=== PATIENT | male | born 1965 | race Caucasian/White ===

== ENCOUNTER → 2018-04-25 17:26 | Outpatient (CLI) | payer BC, SELFPAY ==
[2018-04-25 18:51] LABS: Amphetamine Urine VISTA NEGATIVE (<1000 ng/mL); Barbiturate Urine VISTA NEGATIVE (< 200 ng/mL); Benzodiazepine Urine VISTA NEGATIVE (< 200 ng/mL); Cocaine Urine VISTA NEGATIVE (< 300 ng/mL); Ecstacy Urine VISTA NEGATIVE (< 500 ng/mL); Methadone Urine VISTA NEGATIVE (< 300 ng/mL); PCP Urine VISTA NEGATIVE (< 25 ng/mL); THC Urine VISTA NEGATIVE (< 50 ng/mL); Vista UDS pH Range 6
== END ==
DX: F11.90 Opioid use, unspecified, uncomplicated (principal)
CPT/HCPCS: 80307

== ENCOUNTER 2023-07-11 11:43 | Emergency (ER) | payer OTHER, SELFPAY ==
[2023-07-11] VITALS (16 sets, daily range): BP systolic 88–142; BP diastolic 52–93; PULSE 99–148; RESP 14–43; TEMP 36.4–37.1; O2SAT 69–100; BMI 18.0
--- NOTE | 2023-07-11 11:56 | EKG12_ITS ---
Test Reason : Blood Pressure : / mmHG Vent. Rate : 138 BPM Atrial Rate : 138 BPM P-R Int : 140 ms QRS Dur : 100 ms QT Int : 288 ms P-R-T Axes : 064 051 -16 degrees QTc Int : 436 ms Sinus tachycardia with occasional Premature ventricular complexes Right atrial enlargement Inferior infarct , age undetermined Abnormal ECG Confirmed by ALAN LUNDBERG, THONG ([id number]), society editor EVERARDO ESCAMILLA ([id number]) on 07/13/2023 12:40:26 PM Referred By: KARY Confirmed By:THONG PHILLIPS MD
--- NOTE | 2023-07-11 11:56 | RAD_ITS ---
INDICATION: dyspnea EXAMINATION/TECHNIQUE: X-RAY - XR Chest 1 View COMPARISON: No relevant prior comparison study available FINDINGS: LINES/DEVICES: None. LUNGS: There are hazy and patchy opacities throughout the mid and lower right lung. No pneumothorax. MEDIASTINUM AND CARDIOVASCULAR STRUCTURES: Cardiac silhouette not enlarged. Central airways and mediastinal contour are unremarkable. BONES AND SOFT TISSUES: Unremarkable. RAD/Chest 1 View (Portable) IMPRESSION: Patchy and ill-defined opacities throughout the right lung may be secondary to some combination of atelectasis, pneumonia and/or asymmetric edema, cannot exclude neoplastic process. Electronically Signed: Candida Sinha MD at 13:37 EDT ,
--- NOTE | 2023-07-11 11:59 | ED.VIS.DYS ---
HPI <JORI Garcia - Last Filed: 07/11/23 14:18> History of Present Illness Chief Complaint: Shortness of Breath Narrative Narrative: 57-year-old male with past medical history of hypertension, tobacco use presents with a few days of cough, shortness of breath, and right-sided chest pain. Shortness of breath worsened today prompting his family to bring him in. He does not wear home O2 or use inhalers. Has no known diagnosis of cardiopulmonary disease. He was profoundly hypoxic in triage and placed on nonrebreather. PFSH <JORI Garcia - Last Filed: 07/11/23 14:18> PFSH Allergy/AdvReac Type Severity Reaction Status Date / Time No Known Allergies Allergy Verified 07/11/23 12:15 Social History Smoking Status: Current every day smoker tobacco type: cigarettes ROS <JORI Garcia - Last Filed: 07/11/23 14:18> ROS ED ROS Narrative Constitutional: Negative for fever, chills, malaise. CVS: Positive for chest pain. Negative for syncope. Respiratory: Positive for shortness of breath, cough. GI: Negative for abdominal pain, nausea, vomiting. Neuro: Negative for headache. EXAM <JORI Garcia Last Filed: 07/11/23 14:18> Physical Exam Narrative Exam Narrative: CONST: Patient on nonrebreather with increased work of breathing, awake and alert. EYES: Normal inspection. NECK: Normal inspection. RESP: Tachypneic, diminished with faint wheezing. CVS: Rapid but regular rhythm, no murmur, no gallop. SKIN: Color normal, no rash, warm, dry, intact. EXTREMITIES: Normal appearance, no pedal edema. NEURO: Oriented x4. PSYCH: Normal affect. Const Vital Signs: 07/11/23 11:50 07/11/23 11:47 07/11/23 11:54 Temperature 98.8 F 98.8 F Temperature Source Temporal Temporal Pulse Rate 138 H 148 H 142 H Respiratory Rate 40 H 43 H 43 H Respiratory Effort Respiratory Depth Respiratory Pattern Blood Pressure 118/82 H 118/82 H 118/82 H Blood Pressure Mean 94 94 94 Pulse Ox 69 83 69 Oxygen Delivery Method Nasal Cannula Non-Rebreather @ 15L/min Nasal Cannula Oxygen Flow Rate (L/min) 4 Fraction of Inspired Oxygen (FIO2) 07/11/23 11:59 07/11/23 12:17 07/11/23 12:15 Temperature Temperature Source Pulse Rate 135 H Respiratory Rate 36 H 34 H Respiratory Effort Short of Breath Labored Respiratory Depth Shallow Respiratory Pattern Tachypnea Tachypnea Blood Pressure 91/65 Blood Pressure Mean 73 Pulse Ox 91 Oxygen Delivery Method Nasal Cannula Bi-pap Oxygen Flow Rate (L/min) Fraction of Inspired Oxygen (FIO2) 100 07/11/23 13:54 07/11/23 14:43 Temperature Temperature Source Pulse Rate 113 H 102 H Respiratory Rate 24 H 26 H Respiratory Effort Respiratory Depth Respiratory Pattern Blood Pressure 90/52 L 88/67 L Blood Pressure Mean 64 74 Pulse Ox 97 100 Oxygen Delivery Method Bi-pap Bi-pap Oxygen Flow Rate (L/min) Fraction of Inspired Oxygen (FIO2) <Mesfin Aldana MD - Last Filed: 07/11/23 15:11> Physical Exam Const Vital Signs: 07/11/23 11:50 07/11/23 11:47 07/11/23 11:54 Temperature 98.8 F 98.8 F Temperature Source Temporal Temporal Pulse Rate 138 H 148 H 142 H Respiratory Rate 40 H 43 H 43 H Respiratory Effort Respiratory Depth Respiratory Pattern Blood Pressure 118/82 H 118/82 H 118/82 H Blood Pressure Mean 94 94 94 Pulse Ox 69 83 69 Oxygen Delivery Method Nasal Cannula Non-Rebreather @ 15L/min Nasal Cannula Oxygen Flow Rate (L/min) 4 Fraction of Inspired Oxygen (FIO2) 07/11/23 11:59 07/11/23 12:17 07/11/23 12:15 Temperature Temperature Source Pulse Rate 135 H Respiratory Rate 36 H 34 H Respiratory Effort Short of Breath Labored Respiratory Depth Shallow Respiratory Pattern Tachypnea Tachypnea Blood Pressure 91/65 Blood Pressure Mean 73 Pulse Ox 91 Oxygen Delivery Method Nasal Cannula Bi-pap Oxygen Flow Rate (L/min) Fraction of Inspired Oxygen (FIO2) 100 07/11/23 13:54 07/11/23 14:43 Temperature Temperature Source Pulse Rate 113 H 102 H Respiratory Rate 24 H 26 H Respiratory Effort Respiratory Depth Respiratory Pattern Blood Pressure 90/52 L 88/67 L Blood Pressure Mean 64 74 Pulse Ox 97 100 Oxygen Delivery Method Bi-pap Bi-pap Oxygen Flow Rate (L/min) Fraction of Inspired Oxygen (FIO2) MDM <JORI Garcia - Last Filed: 07/11/23 14:18> MDM MDM Narrative Medical decision making narrative: History gathered from: Patient and family Patient presents with cough and shortness of breath. He is hypoxic and was placed on nonrebreather and is still low 80s. He is awake and alert and able to relay history but appears tired with increased work of breathing. Heart is rapid but regular. Lungs are diminished with faint wheezing. No evidence of fluid overload. Sepsis work-up was initiated and RT is in the room and placed the patient on BiPAP. Labs show white count of 26.4, hyponatremia 125, normal renal function at 24, 1.01. Lactate 7.2. EKG is nonischemic and troponin is 18. My interpretation of 1 view chest x-ray shows complete whiteout of the right lung concerning for pneumonia. Patient was given IV fluids 30 cc/kilogram and Rocephin 2 g and Zithromax 500 mg. He remains hypotensive but MAP is around 80. Lab Data Attestation: I reviewed the patient's lab results. Labs: Laboratory Results - last 24 hr 07/11/23 11:55 WBC 26.4 H RBC 5.36 Hgb 16.5 Hct 47.8 MCV 89.2 MCH 30.8 MCHC 34.5 RDW Std Deviation 46.1 H RDW Coeff of Eysenia 14.2 Plt Count 413 MPV 10.9 Immature Gran % (Auto) 3.000 H Neut % (Auto) 91.5 H Lymph % (Auto) 4.1 L Upton % (Auto) 1.2 Eos % (Auto) 0.0 Baso % (Auto) 0.2 Absolute Neuts (auto) 24.2 H Absolute Lymphs (auto) 1.09 Nucleated RBC % 0 Differential Comment SCANNED Toxic Vacuolation 1+ D-Dimer Quant (PE/DVT) 7.00 H* Sodium 125 L Potassium 3.8 Chloride 86 L Carbon Dioxide 22.0 Anion Gap 17 H BUN 24 H Creatinine 1.01 Estim Creat Clear Calc 68.95 Est GFR (MDRD) Af Amer 97 Est GFR (MDRD) Non-Af 80 BUN/Creatinine Ratio 23.8 H Glucose 131 H Lactic Acid 7.2 H* Calcium 9.9 Troponin I High Sens 18 Procalcitonin 15.07 H Radiography Diagnostic Testing: Clinical Impression(s) from Imaging Studies Chest X-Ray 07/11/23 11:56 IMPRESSION: Patchy and ill-defined opacities throughout the right lung may be secondary to some combination of atelectasis, pneumonia and/or asymmetric edema, cannot exclude neoplastic process. Electronically Signed: Candida Sinha MD at 13:37 EDT , Chest CTA 07/11/23 12:40 IMPRESSION: No demonstrated pulmonary embolism or arterial dissection. Consolidation associated with groundglass opacities throughout the right lung may be secondary to multifocal pneumonia and edema, cannot exclude an underlying neoplastic process, recommend follow-up chest CT in 6-8 weeks. Enlarged mediastinal lymph nodes, may be reactive however cannot exclude a neoplastic process. Emphysema. Small right pleural effusion. Small pericardial effusion. Atherosclerosis. Electronically Signed: Candida Sinha MD at 14:48 EDT , EKG Initial EKG: Attestation: I personally reviewed and interpreted this EKG as follows: Comments: Sinus tachycardia at 130 bpm, occasional PVCs No STEMI criteria <Mesfin Aldana MD - Last Filed: 07/11/23 15:11> [facility] MDM Narrative Medical decision making narrative: History gathered from: Patient and family Patient presents with cough and shortness of breath. He is hypoxic and was placed on nonrebreather and is still low 80s. He is awake and alert and able to relay history but appears tired with increased work of breathing. Heart is rapid but regular. Lungs are diminished with faint wheezing. No evidence of fluid overload. Sepsis work-up was initiated and RT is in the room and placed the patient on BiPAP. Labs show white count of 26.4, hyponatremia 125, normal renal function at 24, 1.01. Lactate 7.2. EKG is nonischemic and troponin is 18. My interpretation of 1 view chest x-ray shows complete whiteout of the right lung concerning for pneumonia. Patient was given IV fluids 30 cc/kilogram and Rocephin 2 g and Zithromax 500 mg. He remains hypotensive but MAP is around 80. Dr. Aldana: I have personally performed a face to face assessment of the patient and have reviewed the YOMI Note. I performed a substantive portion of the visit including all aspects of the following. My allison findings include: History is shortness of breath and cough times days. Patient hypoxic upon EMS arrival. On arrival to ED, 83% on nonrebreather. Attempt made to switch to nasal cannula and he remains hypoxic. No fever or chills. Positive smoker. Exam is afebrile. Vital signs noted. Moderate respiratory distress. Diminished breath sounds right side lung field. Positive tachypnea. Abdomen soft. Medical Decision Making: Check labs. Check chest x-ray. I interpreted his chest x-ray in 1 view which shows multifocal pneumonia on the right but no evidence of pneumothorax. I reviewed the radiology report which confirms my independent interpretation. There is also concern for neoplastic disease. EKG was obtained and interpreted by myself as well which demonstrates sinus tachycardia with occasional PVCs at [address] changes. No STEMI. I reviewed his laboratory work. He has a leukocytosis of 26.4, D-dimer is elevated at 7.0, this may coincide with questionable neoplastic disease of the right lung. CTA was obtained and I reviewed the radiology report which does show multifocal pneumonia on the right side, with still question of neoplastic disease. He has a low sodium of 125 and a chloride low at 86 with elevated anion gap, BUN 24. I discussed the patient with the hospitalist, Dr. Dunn, and given no ICU coverage there is need for transfer. Patient was discussed with ICU attending at [facility], Dr. Peñaloza who requested a bladder scan and an ABG. She would also like discs of the CTA and of the chest x-ray. She also requested that the patient be put on high flow nasal cannula oxygen instead of BiPAP at 14/8 because mucous plugging could be making the patient hypotensive. He was taken off BiPAP, his blood pressure increased to 117 systolic. At this point in time, he is awaiting a bed at [facility]. I will sign out the patient to the oncoming physician, Dr. Odell Solorio to ensure transport to [facility]. Patient is in guarded condition. Other additions or changes: [None] History & Record Review Discussion w/independent historian: Patient and Family Additional record(s) reviewed:: No prior records Lab Data Labs: Laboratory Results - last 24 hr 07/11/23 11:55 WBC 26.4 H RBC 5.36 Hgb 16.5 Hct 47.8 MCV 89.2 MCH 30.8 MCHC 34.5 RDW Std Deviation 46.1 H RDW Coeff of Yesenia 14.2 Plt Count 413 MPV 10.9 Immature Gran % (Auto) 3.000 H Neut % (Auto) 91.5 H Lymph % (Auto) 4.1 L Upton % (Auto) 1.2 Eos % (Auto) 0.0 Baso % (Auto) 0.2 Absolute Neuts (auto) 24.2 H Absolute Lymphs (auto) 1.09 Nucleated RBC % 0 Differential Comment SCANNED Toxic Vacuolation 1+ D-Dimer Quant (PE/DVT) 7.00 H* Sodium 125 L Potassium 3.8 Chloride 86 L Carbon Dioxide 22.0 Anion Gap 17 H BUN 24 H Creatinine 1.01 Estim Creat Clear Calc 68.95 Est GFR (MDRD) Af Amer 97 Est GFR (MDRD) Non-Af 80 BUN/Creatinine Ratio 23.8 H Glucose 131 H Lactic Acid 7.2 H* Calcium 9.9 Troponin I High Sens 18 Procalcitonin 15.07 H Radiography Diagnostic Testing: Clinical Impression(s) from Imaging Studies Chest X-Ray 07/11/23 11:56 IMPRESSION: Patchy and ill-defined opacities throughout the right lung may be secondary to some combination of atelectasis, pneumonia and/or asymmetric edema, cannot exclude neoplastic process. Electronically Signed: Candida Sinha MD at 13:37 EDT , Chest CTA 07/11/23 12:40 IMPRESSION: No demonstrated pulmonary embolism or arterial dissection. Consolidation associated with groundglass opacities throughout the right lung may be secondary to multifocal pneumonia and edema, cannot exclude an underlying neoplastic process, recommend follow-up chest CT in 6-8 weeks. Enlarged mediastinal lymph nodes, may be reactive however cannot exclude a neoplastic process. Emphysema. Small right pleural effusion. Small pericardial effusion. Atherosclerosis. Electronically Signed: Candida Sinha MD at 14:48 EDT , Management Discussion w/another healthcare provider: Hospitalist (Dr. Dunn) and Garden Implement Mechanic ([facility] ICU attending) <Mesfin Aldana MD - Last Filed: 07/11/23 15:11> Critical Care Time Critical Care Time: Yes Critical care time (excluding procedures): 30-74 minutes (33), Including time spent:, Discussing w/Patient &/or Family/Pipe Fitter Supervisor Maintenance, Discussing w/Consultants, Arranging Admission or Transfer and Performing Direct Patient Care at Bedside Discharge Plan Triage Chief Complaint: Shortness of Breath ED Midlevel Provider: Lisa Keita ED Provider: Mesfin Aldana Dx/Rx/DC Orders Clinical Impression: Acute hypoxic respiratory failure, Septic shock, Community acquired pneumonia Primary Care Provider: Care Physician,No Primary Referrals: NOT,DEFINED [Non-Staff] -
[2023-07-11] MEDS: 0.9% Normal Saline (1000mL) 1,000 ML 999 ML IV ×3 (12:05→14:26)
[2023-07-11] MEDS: MethylPREDNISolone 125 MG/2 ML Vial IV (12:06)
[2023-07-11 12:18] LABS: Absolute Lymphocyte Count 1.09 X10^3/uL (0.83-4.51); Absolute Neutrophil Count 24.2 X10^3/uL (2.0-7.7); Basophil# 0.05 X10^3/uL; Basophil% 0.2 % (0-1); Differential Indicated SCAN CRITERIA MET; Hematocrit 47.8 % (40-54); Hemoglobin 16.5 g/dL (13.0-16.5); Lymphocyte # 1.09 X10^3/ul (0.83-4.51); Lymphocyte % 4.1 % (19-41); Mean Corp Hgb Conc 34.5 g/dL (32-36); Mean Corpuscular Hgb 30.8 pg (27.0-32.0); Mean Corpuscular Volume 89.2 fL (80-94); Mean Platelet Vol. 10.9 fl (6.2-12.0); Monocyte# 0.31 X10^3/uL; Monocyte% 1.2 % (0-10); NRBC Flagged by Analyzer 0 % (0-5); Neutrophil # 24.16 X10^3/uL (2.7-7.7); Neutrophil % 91.5 % (47-70); POSITIVE DIFFERENTIAL YES; POSITIVE MORPHOLOGY YES; Platelet Count 413 K/mm3 (150-450); RBC Distribution Width CV 14.2 % (11.6-14.6); RBC Distribution Width SD 46.1 fl (35.1-43.9); Red Blood Count 5.36 M/mm3 (4.6-6.2); White Blood Count 26.4 K/mm3 (4.4-11.0)
--- NOTE | 2023-07-11 12:40 | CT_ITS ---
STUDY: CTA CHEST REASON FOR EXAM: Male, 57 years old. Elevated d dimer RADIATION DOSAGE (If Supplied By Facility): CTDIvol = ( 11.97 ) mGy, DLP = ( 603.02 ) mGycm TECHNIQUE: The examination was performed with the intravenous administration of IV 100mL Isovue-370. Post-processing of the angiographic images was performed, with multiplanar reformation and 3D reconstruction. Individualized dose optimization techniques were used for this CT. COMPARISON: No relevant prior comparison study available FINDINGS: There is consolidation throughout the right lung associated with groundglass opacities. There is a small right pleural effusion. There are bilateral emphysematous changes. Normal enhancement of the main pulmonary artery and right and left pulmonary arteries. Normal enhancement of the bilateral peripheral pulmonary arteries. There is no demonstrated pulmonary embolism. Normal thoracic aorta and visualized great vessels. There is no demonstrated aortic dissection. There are calcifications of the coronary arteries. There is a small pericardial effusion. There are pathologically enlarged mediastinal lymph nodes. Normal visualized trachea and bronchi. Normal chest wall structures. There are degenerative changes of the shoulders. Normal visualized upper abdomen. CT/CTA Chest W/WO Contrast IMPRESSION: No demonstrated pulmonary embolism or arterial dissection. Consolidation associated with groundglass opacities throughout the right lung may be secondary to multifocal pneumonia and edema, cannot exclude an underlying neoplastic process, recommend follow-up chest CT in 6-8 weeks. Enlarged mediastinal lymph nodes, may be reactive however cannot exclude a neoplastic process. Emphysema. Small right pleural effusion. Small pericardial effusion. Atherosclerosis. Electronically Signed: Candida Sinha MD at 14:48 EDT ,
[2023-07-11 12:43] LABS: Differential Comment SCANNED; Vacuolated Cells 1+
[2023-07-11 13:02] LABS: Anion Gap 17 (5-15); BUN 24 mg/dL (7-18); BUN/Creat Ratio 23.8 RATIO (10-20); Calcium,Total 9.9 mg/dL (8.5-10.1); Chloride 86 mmol/L (98-107); Creatinine, Serum 1.01 mg/dL (0.70-1.30); EST Glomerular Filtration Rate 80 mL/min (>60); Est Glom Filt Rate - Afr Amer 97 mL/min (>60); Estimated Creatinine Clearance 68.95 ml/min; Glucose 131 mg/dL (74-106); Potassium 3.8 mmol/L (3.5-5.1); Sodium Level 125 mmol/L (136-145); Troponin-I HS 18 pg/mL (3.0-78.0)
[2023-07-11 13:05] LABS: Lactic Acid 7.2 mmol/L (0.4-1.9)
[2023-07-11 13:18] LABS: Procalcitonin 15.07 ng/mL (0.00-0.09)
[2023-07-11] MEDS: Ceftriaxone 2 GM in 0.9% Normal Saline (50mL MB+) 50 ML IV (13:46)
[2023-07-11] MEDS: Azithromycin 500 MG in Dextrose 5%-Water (250mL Bag) 250 ML 250 MG IV (14:27)
[2023-07-11] MEDS: fentaNYL 100 MCG/2 ML Ampul 25 MCG IV (15:26)
[2023-07-11 16:07] LABS: Reflex Lactate? Y
--- NOTE | 2023-07-11 16:11 | ED.RN ---
ETA IS GOING TO BE 2-3 HOURS
[2023-07-11 17:11] LABS: Lactic Acid 2.2 mmol/L (0.4-1.9)
== END 2023-07-11 20:36 | disposition short-term general hospital (02) ==
LOC: ED 12:25
PROVIDERS: Physician Assistant; Emergency Provider Emergency Medicine; Visit Provider Emergency Medicine
DX: J96.01 Acute respiratory failure with hypoxia (principal); R65.21 Severe sepsis with septic shock; A41.9 Sepsis, unspecified organism; J18.9 Pneumonia, unspecified organism; I10 Essential (primary) hypertension; F17.210 Nicotine dependence, cigarettes, uncomplicated; Z79.899 Other long term (current) drug therapy
CPT/HCPCS: 36415; 71045; 71275; 80048; 83605; 84145; 84484; 85025; 85379; 87040; 87428; 93005; 94002; 96361; 96365; 96367; 96375; 99284; J7030; J7050; Q9967; A4216; J0696

== ENCOUNTER → 2023-08-23 | Outpatient (CLI) | payer SELFPAY ==
--- NOTE | 2023-08-23 14:35 | CT_ITS ---
INDICATION: RLL consolidation with mediastinal adenopathy EXAMINATION: CT CHEST WITH CONTRAST - CT Chest W/ Contrast Injection TECHNIQUE: Helically acquired images were obtained of the chest following IV contrast. A radiation dose optimization technique was used for this scan. IV Contrast dosage and agent: 100 mL of Isovue-300 RADIATION DOSAGE (If Supplied By Facility): CTDIvol = ( 11.94 ) mGy, DLP = ( 537.76 ) mGycm COMPARISON: Prior study dated: CT from 07/11/2023. Radiograph 07/19/2023. FINDINGS: LUNGS, PLEURA AND LARGE AIRWAYS: The central airways are patent. There is moderate centrilobular and paraseptal emphysema with upper lobe predominance. On the previous study there was extensive consolidation throughout the right lung with air bronchograms present. This has significantly improved. There is mild groundglass opacity remaining throughout much of the region of prior consolidation. There is some bandlike linear opacity with minimal peripheral posterior consolidation seen in the right upper lobe, series 2 image 49. The left lung is clear. No pleural effusion or thickening. No pneumothorax. THYROID: 0.5 cm hypodense nodule in the right lobe of the thyroid gland. No specific follow-up recommended. HEART AND PERICARDIUM: Heart size is normal. No pericardial effusion. Coronary artery calcifications are present. VESSELS: Thoracic aorta is not dilated. No aortic dissection. No obvious central pulmonary embolism although this study was not performed with the pulmonary embolism protocol. MEDIASTINUM AND NKECHI: No mediastinal or hilar adenopathy. Decreased prominence of mediastinal lymph nodes compared to prior. Esophagus is unremarkable. No hiatal hernia. UPPER ABDOMEN: No acute pathology. BONES: No suspicious lytic or blastic abnormality. Mild degenerative changes of the spine. CT/Chest WITH Contrast IMPRESSION: Significant improvement from prior. Residual groundglass opacification of the right lung throughout the area of prior consolidation with minimal residual posterior consolidation of the right upper lobe. Improvement of previous mediastinal lymphadenopathy which was likely reactive. Electronically Signed: Chandler Moy MD at 16:07 EST ,
[2023-08-23 15:12] LABS: CREATININE FINGERSTICK < 0.9 mg/dL (0.70-1.30); EGFR FINGERSTICK > 60.0000 mL/min (>60)
== END | disposition home or self-care (01) ==
LOC: CT 14:35
PROVIDERS: PCP Nurse Practitioner Family; Referring Provider Internal Medicine Critical Care Medicine; Visit Provider Internal Medicine Critical Care Medicine
DX: R93.89 Abnormal findings on diagnostic imaging of other specified body structures (principal)
CPT/HCPCS: 71260; Q9967